=== PATIENT | male | born 1965 | race Caucasian/White ===

== ENCOUNTER 2017-08-19 16:12 | Emergency (ER) | payer OTHER ==
[2017-08-19 16:48] VITALS: BP 126/67
--- NOTE | 2017-08-19 18:56 | UC ---
UC General HPI - HPI Summary HPI Summary: pt is c/o sudden headaches, fever/chills , bodyaches and joint pain. had a single bout of diarrhea but no abdominal pain n/v. onset with malaise x 1 days then abrupt s/s's this am - History of Current Complaint Chief Complaint: UCGeneralIllness Stated Complaint: FEVER,ACHY Time Seen by Provider: 08/19/17 18:49 Hx Obtained From: Patient Onset/Duration: Sudden Onset Timing: Constant Pain Intensity: 6 Associated Signs & Symptoms: Positive: Diarrhea, Fever, Headache. Negative: Cough, Chest Pain, Dysuria, Nausea, SOB, Vomiting - Allergy/Home Medications Allergies/Adverse Reactions: Allergies Allergy/AdvReac Type Severity Reaction Status Date / Time MS Amoxicillin [Amoxicillin] Allergy Rash Verified 08/19/17 16:48 MS Penicillins [PCN] Allergy Rash Verified 08/19/17 16:48 MS Sulfamethoxazole Allergy skin Verified 08/19/17 16:48 w/Trimethoprim peeling [From Bactrim] SEASONAL ALLERGIES Allergy Mild Runny Nose Uncoded 08/19/17 16:48 bactrim Allergy See Comment Uncoded 08/19/17 16:48 PMH/Surg Hx/FS Hx/Imm Hx Previously Healthy: Yes - Surgical History Surgical History: Yes Surgery Procedure, Year, and Place: 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 - Family History Known Family History: Positive: Hypertension, Other - cancer Negative: Cardiac Disease, Diabetes - Social History Occupation: Employed Full-time Lives: With Family Alcohol Use: Rare Alcohol Amount: 5 PER MONTH Substance Use Type: None Smoking Status (MU): Heavy Every Day Tobacco Smoker Amount Used/How Often: PACK A DAY Length of Time of Smoking/Using Tobacco: 1ppd Have You Smoked in the Last Year: No - Immunization History Most Recent Tetanus Shot: UTD Vaccination Up to Date: Yes Review of Systems Constitutional: Fever, Chills Musculoskeletal: Arthralgia, Myalgia Neurological: Headache Is Patient Immunocompromised?: No All Other Systems Reviewed And Are Negative: Yes Physical Exam Triage Information Reviewed: Yes Appearance: Well-Appearing Vital Signs: Initial Vital Signs Temp 99.1 F 08/19/17 16:43 Pulse 62 08/19/17 16:43 Resp 16 08/19/17 16:43 BP 126/67 08/19/17 16:43 Pulse Ox 96 02/28/18 16:43 Vital Signs Reviewed: Yes Eyes: Positive: Conjunctiva Clear ENT: Positive: Pharynx normal, TMs normal. Negative: Nasal congestion Neck: Positive: Supple, Nontender, No Lymphadenopathy Respiratory: Positive: Lungs clear, Normal breath sounds, No respiratory distress Cardiovascular: Positive: RRR, No Murmur Abdomen Description: Positive: Nontender, No Organomegaly, Soft Bowel Sounds: Positive: Present Musculoskeletal: Positive: Edema @ - RLE(chronic and unchanged) Neurological: Positive: Alert Psychological: Positive: Age Appropriate Behavior Skin Exam: Normal Course/Dx - Differential Dx - Multi-Symptom Provider Diagnoses: Influenza like illness Discharge - Discharge Plan Condition: Stable Disposition: HOME Prescriptions: Oseltamivir Phosphate [Tamiflu] 75 mg PO BID 5 Days #10 capsule Patient Education Materials: Influenza (ED) Forms: *Work Release Referrals: Tejas Wilson MD [Primary Care Provider] - 7 Days
== END 2017-08-19 19:09 | disposition home or self-care (01) ==
LOC: UCCORT 16:12
DX: J11.1 Influenza due to unidentified influenza virus with other respiratory manifestations (principal); F17.210 Nicotine dependence, cigarettes, uncomplicated
CPT/HCPCS: 99212; G0463

== ENCOUNTER 2018-12-01 13:53 | Emergency (ER) | payer OTHER ==
--- NOTE | 2018-12-01 14:47 | ED ---
Upper Extremity Pain - HPI Summary HPI Summary: Pt is a 53 y/o M presenting to the ED with a chief complaint of shooting pain down his R arm. The pain is described as burning with no known trauma, and numbness in his fingers. He can use his RUE, it is just painful to do so. He denies decreased ROM. - History of Current Complaint Chief Complaint: EDExtremityUpper Stated Complaint: ARM PAIN AND FINDER NUMB PER PT Time Seen by Provider: 12/01/18 14:13 Hx Obtained From: Patient Mechanism Of Injury: Unknown Onset/Duration: Started Days Ago, Still Present Timing: Constant, Lasting Days Severity Initially: Moderate Severity Currently: Moderate Pain Location: Arm, Hand, Finger Character: Burning Aggravating Factor(s): Movement Alleviating Factor(s): Nothing Associated Signs & Symptoms: Positive: Numbness/Tingling - in fingers - Allergies/Home Medications Allergies/Adverse Reactions: Allergies Allergy/AdvReac Type Severity Reaction Status Date / Time amoxicillin Allergy Rash Verified 12/01/18 14:02 Penicillins Allergy Rash Verified 12/01/18 14:02 sulfamethoxazole Allergy Rash Verified 12/01/18 14:02 [From Bactrim] trimethoprim [From Bactrim] Allergy Rash Verified 12/01/18 14:02 PMH/Surg Hx/FS Hx/Imm Hx Previously Healthy: Yes Endocrine/Hematology History: Denies: Hx Diabetes Cardiovascular History: Denies: Hx Hypertension, Other Cardiovascular Problems/Disorders Respiratory History: Denies: Other Respiratory Problems/Disorders GI History: Denies: Other GI Disorders History: Denies: Hx Dialysis, Hx Renal Disease Musculoskeletal History: Denies: Other Musculoskeletal History Sensory History: Denies: Hx Contacts or Glasses, Hx Hearing Aid Opthamlomology History: Denies: Hx Contacts or Glasses Neurological History: Denies: Other Neuro Impairments/Disorders - Cancer History Cancer Type, 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 Hx Anesthesia Reactions: No Infectious Disease History: No Infectious Disease History: Denies: Traveled Outside the [place] in Last 30 Days - Family History Known Family History: Positive: Hypertension, Other - cancer Negative: Cardiac Disease, Diabetes - Social History Alcohol Use: Rare Alcohol Amount: 5 PER MONTH Hx Substance Use: No Substance Use Type: Reports: None Hx Tobacco Use: Yes Smoking Status (MU): Heavy Every Day Tobacco Smoker Amount Used/How Often: PACK A DAY Length of Time of Smoking/Using Tobacco: 1ppd Have You Smoked in the Last Year: No Review of Systems Positive: Myalgia. Negative: Decreased ROM Positive: Numbness - in R fingers All Other Systems Reviewed And Are Negative: Yes Physical Exam - Summary Physical Exam Summary: Appearance: well appearing, no pain distress Skin: warm, dry, reflects adequate perfusion Head/face: normal Eyes: EOMI, TOBIAS ENT: mucous membranes moist Neck: supple, non-tender Respiratory: CTA, breath sounds present Cardiovascular: RRR, pulses symmetrical Abdomen: non-tender, soft Bowel Sounds: present Musculoskeletal: Exacerbation of pain down R arm with abduction. Normal strength , normal sensation. Neuro: normal, sensory motor intact, A&Ox3 Triage Information Reviewed: Yes Vital Signs On Initial Exam: Initial Vitals Temp Pulse Resp BP Pulse Ox 98.3 F 61 18 164/85 96 12/01/18 13:57 12/01/18 13:57 12/01/18 13:57 12/01/18 13:57 12/01/18 13:57 Vital Signs Reviewed: Yes Procedures - Procedure Summary Procedure Summary: Pt's R arm placed in a sling. His neurovascular exam was intact before and after placing him in a sling. He is stable. Diagnostics - Vital Signs Vital Signs Temp Pulse Resp BP Pulse Ox 12/01/18 13:57 98.3 F 61 18 164/85 96 - Laboratory Lab Statement: Any lab studies that have been ordered have been reviewed, and results considered in the medical decision making process. - Radiology C-spine XR Radiology Interpretation Completed By: Radiologist Summary of Radiographic Findings: 1. DEGENERATIVE DISC DISEASE. 2. PROMINENT TRANSVERSE PROCESSES AT THE C7 LEVEL. ED physician has reviewed this report. Course/Dx - Course Course Of Treatment: Nurse's notes reviewed. Patient symptoms concerning for radiculopathy. X-rays are indicated for of degenerative disc disease. Started on steroid, Mobic and placed in a sling. Neurovascular intact. - Diagnoses Differential Diagnosis/HQI/PQRI: Positive: Strain, Sprain, Other - Radiculopathy Provider Diagnoses: Cervical radiculopathy Discharge - Sign-Out/Discharge Documenting (check all that apply): Patient Departure Patient Received Moderate/Deep Sedation with Procedure: No - Discharge Plan Condition: Stable Disposition: HOME Prescriptions: Dexamethasone TAB* [Decadron TAB*] 8 mg PO DAILY #10 tab Meloxicam(NF) [Mobic(NF)] 7.5 mg PO DAILY #30 tab Patient Education Materials: Cervical Radiculopathy (ED) Forms: *Work Release Referrals: Tejas Wilson MD [Primary Care Provider] - Additional Instructions: Sling for comfort. Weightbearing as tolerated in the right arm. Call today to schedule prompt follow-up with her doctor. Return if worse, new symptoms or other concerns. - Billing Disposition and Condition Condition: STABLE Disposition: Home - Attestation Statements Document Initiated by Scribe: Yes Documenting Scribe: Debby Sullivan Provider For Whom Bel is Documenting (Include Credential): Manpreet Hill MD. Scribe Attestation: Debby Bo, scribed for Manpreet Hill MD. on 12/01/18 at 1753. Scribe Documentation Reviewed: Yes Provider Attestation: The documentation as recorded by the scribeDebby accurately reflects the service I personally performed and the decisions made by Manpreet thao MD. Status of Scribe Document: Viewed
[2018-12-01 15:25] VITALS: BP 130/80
== END 2018-12-01 15:23 | disposition home or self-care (01) ==
LOC: ED 13:53
DX: M54.12 Radiculopathy, cervical region (principal); F17.210 Nicotine dependence, cigarettes, uncomplicated; M50.30 Other cervical disc degeneration, unspecified cervical region
CPT/HCPCS: 72040; 99282